=== PATIENT | female | born 1960 | race Two or more races ===

== ENCOUNTER 2023-01-17 16:15 | Emergency (ER) | payer OTHER, SELFPAY ==
[2023-01-17 16:45] VITALS: BP 150/69; PULSE 82; RESP 18; TEMP 36.7; O2SAT 98; BMI 24.7
--- NOTE | 2023-01-17 16:49 | ED.GENADULT ---
HPI - General Adult General Chief complaint: Extremity Problem Stated complaint: sliver under finger nail Time Seen by Provider: 01/17/23 17:03 Source: patient Mode of arrival: ambulatory Limitations: no limitations History of Present Illness HPI narrative: 62 yold female presents to the ED or sliver under first finger nail. patient states sliver came from a sponge while cleaning in a [employer]. She states sliver has been presents for the past 4 days. Patient denies any other complaints. Related Data Allergies Allergy/AdvReac Type Severity Reaction Status Date / Time aspirin [ASA] Allergy Unknown Verified 01/17/23 16:48 Review of Systems Review of Systems: Yes all other systems are reviewed and are negative PMFSH Social History Social History Advance Directives: No Advance Directives Information Provided: No Physical Exam ED Vital Signs: Vital Signs - 24 hr 01/17/23 16:45 Temperature 98.0 F Pulse Rate 82 Respiratory Rate 18 Blood Pressure 150/69 H Pulse Oximetry 98 Oxygen Delivery Method Room Air BMI result Body Mass Index 24.7 Const General: cooperative, healthy appearing, comfortable, no acute distress, well developed, alert, awake and Physically active Orientation/consciousness: oriented to person, oriented to place, oriented to time and patient oriented x3 HENMT Head: Yes normal to inspection, Yes No palpable skull fracture present, Yes normocephalic, Yes atraumatic and No abrasion Eyes General: appearance normal, both eyes and all related structures Neck Neck: Yes normal visual inspection, Yes full ROM, Yes no lymphadenopathy, Yes no meningeal signs, Yes trachea midline, Yes supple, No anterior neck swelling and No tender Chest Chest palpation & inspection: normal inspection of the chest and normal palpation of entire chest wall Resp Effort & Inspection: normal respiratory effort and able to speak in complete sentences Cardio Jugular venous distension: no JVD Heart sounds: S1 normal heart sound present and S2 normal heart sound present GI Inspection: Yes normal to inspection and No abdominal wall ecchymosis Palpation (GI): Soft to palpation, not firm, nontender, no guarding and not rigid General: No CVA tenderness and Yes no CVA tenderness Back/Spine/Pelvis Back: no CVA tenderness, No CVA tenderness and No back tenderness Skin General skin exam: no rashes or lesions noted and elasticity normal Neuro General: oriented to person, oriented to place, oriented to time, patient oriented x3, gait normal, tone normal, moves all extremities, Normal light touch and pain sensation, no meningeal signs, no focal motor deficits and CN's II-XI intact bilaterally Extrem Other: Sliver under right first fingernail that is very small and threadlike. no swelling, pus discharge, redness, gangerened, ecchymosis, or deformity. patient states complete range of motion of finger and rest of extremities. motor, neuro, and vascular exam of extremities is intact. General: Yes normal to inspection and Yes full ROM Psych Appearance: grossly normal, well kempt and not disheveled Course Course Course Narrative: RME; 62 yold female presents to the ED for splinter/silver under first finger nail from working in the kitchen. its basically a bristle ( sliver) from a brush ( sponge). physical exam positive for bristle from a brush ( sponge) under right first finger nail. Sliver is very thin and threadlike and very small. has been presents for the past 4 days. no swelling, redness, tendernss, pus discharge, foul odor, or difficulty movement. No need for tetanus shot. Reevaluation(s) Reevaluation #1: Patient is safe for discharge Medical Decision Making Medical Decision Making MDM Narrative: 62 yold female with sliver under right first finger nail. Finger exam shows just sliver and is normal. No signs of cellulitis, tenosynovitis, fracture, are arterial occlusion, DVT, or osteomyelitis. Negative for signs of paronychia. No further intervention needed. Patient is safe for discharge. Patient educated on signs of infection and told to return to the ED if she has them. No further intervention needed Differential Diagnosis Differential Diagnoses: The differential diagnosis associated with the presentation includes (Cellulitis, tenosynovitis, fracture, or tilt occlusion, DVT, or osteomyelitis, paronychia) Discharge Plan Discharge Clinical Impression: Superficial foreign body (sliver), Subungual sliver of finger Patient Disposition: Home, Self-Care Instructions: Soft Tissue Foreign Body (ED) Additional Instructions: Regrese al servicio de urgencias inmediatamente por enrojecimiento, hinchaz?n del dedo, secreci?n de pus, mal olor, incapacidad para tacking stitch remover el dedo, decoloraci?n de color haven azulado o cualquier otro s?ntoma preocupante. Por favor, kmi un seguimiento con el PCP. Stand Alone Forms: Work/School Release Interventions: ED Discharge Assessment Last Done: 01/17/23 17:07 Discharge Date/Time: 01/17/23 17:08 Print Language: [place]
--- NOTE | 2023-01-17 16:57 | PC.NURSE ---
eval and dc by PIT
== END 2023-01-17 17:08 | disposition home or self-care (01) ==
PROVIDERS: Emergency Provider Emergency Medicine
DX: M79.5 Residual foreign body in soft tissue (principal)
CPT/HCPCS: 20520; 99282; 99283

== ENCOUNTER 2023-04-11 12:55 | Day surgery (SDC) | payer OTHER, SELFPAY ==
[2023-04-11 13:27] VITALS: BMI 23.0
[2023-04-11 13:34] VITALS: BP 145/94; PULSE 109; RESP 18; TEMP 36.1; O2SAT 95
--- NOTE | 2023-04-11 13:38 | HO.ANESPROP2 ---
[facility] Family History Family history of problems with anesthesia: No Surgical History Surgical History (Updated 04/11/23 @ 13:23 by Filomena Berger RN) H/O bilateral breast reduction surgery H/O: hysterectomy Hx laparoscopic cholecystectomy Hx of appendectomy Hx of cholecystectomy History of Problems with Anesthesia: No Social History Social History Patient Tobacco Use Status: Never used Tobacco Use of substances other than those prescribed or required for medical reasons: No Are you DNR?: No Advance Directives: No Advance Directives Information Provided: Yes Meds Allergies Allergy/AdvReac Type Severity Reaction Status Date / Time aspirin [ASA] Allergy Severe Anaphylaxis Verified 04/11/23 13:23 Active Medications: Current Medications Ondansetron HCl (Ondansetron Hcl 4 Mg/2 Ml Vial) 4 mg IVPUSH ONCE PRN PRN Reason: Nausea and Vomiting Sodium Biphosphate/Sodium Phosphate (Sodium Phosphate,Stokes-Dibasic 133 Ml Enema) 133 ml AR ONCE PRN PRN Reason: Poor Colonoscopy Prep Results Exam Exam Date and Time: April 11, 2023 1338 Height,Weight and Vital Signs: Height 5 ft 1 in Weight 55.338 kg Last Vital Signs Temp 97.0 F 04/11/23 13:34 Pulse 109 H 04/11/23 13:34 Resp 18 04/11/23 13:34 BP 145/94 H 04/11/23 13:34 Pulse Ox 95 04/11/23 13:34 O2 Del Method Room Air 04/11/23 13:34 Airway Mallampati Class: III TM Dist: >3cm Loose/Missing/Broken Teeth: No Heart: rrr Lungs: clear Assessment and Plan Assessment Anesthesia Assessment: Anesthesia Plan Discussed Final Anesthetic Review Family History of Problems with Anesthesia: No History of Problems with Anesthesia: No NPO: Yes ASA Class: II Final Preanesthetic Review: No Changes in Pt Med Stat, Meds/Allgs Chart Reviewed, Consent Obtained/Reviewed and Anes Risks/Benef Reviewed Patient Risk: Low Procedure Risk: Low Anesthetic Plan Anesthetic Plan: MAC: Disposition: Standard PACU
[2023-04-11 14:47] VITALS: BP 110/64; PULSE 86; RESP 16; TEMP 36.2; O2SAT 97
--- NOTE | 2023-04-11 14:50 | PM.OP ---
Brief Operative Note Date of Service: 04/11/23 Pre-op diagnosis: GERD, Screening Post-op diagnosis: other (GERD, Hiatal hernia, Gastritis, Diverticulosis) Procedure: EGD with biopsies, Colonoscopy to the cecum and TI Surgeon: Rebel Hawkins Anesthesia: MAC Was an Artificial Flower Maker used for this Procedure?: No Estimated blood loss (mL): 2.0 Pathology: other (A. Gastric antrum B. EG Junction at 33cm) Condition: stable Disposition: PACU
[2023-04-11 15:02] VITALS: BP 131/82; PULSE 67; RESP 18; TEMP 36.9; O2SAT 97
--- NOTE | 2023-04-11 20:35 | OP_ITS ---
DATE OF SERVICE: 04/11/2023 SURGEON: Rebel Hawkins MD INDICATIONS: The patient presents for evaluation of gastroesophageal reflux and reported history of a colon polyp. Full consent has been obtained from her for this, including risks of bleeding and perforation. PREOPERATIVE DIAGNOSIS: POSTOPERATIVE DIAGNOSIS: PROCEDURE PERFORMED: ESTIMATED BLOOD LOSS: COMPLICATIONS: ANESTHESIA: Monitored anesthesia care. ASSISTANTS: SPECIMENS: PREOPERATIVE DIAGNOSES: Gastroesophageal reflux and colorectal cancer screening. POSTOPERATIVE DIAGNOSES: Gastroesophageal reflux and colorectal cancer screening, hiatal hernia, gastritis, gastroesophageal reflux, diverticulosis and internal hemorrhoids. PROCEDURES PERFORMED: Esophagogastroduodenoscopy with biopsies, and colonoscopy to the cecum and terminal ileum. DESCRIPTION OF PROCEDURE: The patient was placed in the left lateral decubitus position. The Olympus video gastroscope was passed in the posterior oropharynx and upper esophagus under direct vision. The scope was passed slowly into the distal esophagus. The gastroesophageal junction appeared at 33 cm. There was some slight irregularity, consistent with reflux and possibly less than 1 cm areas of Wilson mucosa. There was no evidence of any esophagitis nor any lesions. The scope entered the stomach. There was a small to moderate-sized hiatal hernia. The scope was advanced to the pylorus and the duodenum was cannulated to the descending portion. The duodenum including the bulb appeared normal without mass or ulceration. The scope was withdrawn back into the stomach. The gastric antrum had some areas of erythema and edema, but no erosions nor ulceration. There was good peristalsis. Biopsies were obtained from the gastric antrum. The scope was retroflexed visualizing the proximal stomach carefully, which appeared normal, without any sign of mass or ulceration. The scope was straightened and withdrawn back into the esophagus. Biopsies were obtained at the EG junction at 33 cm. Proximal to this, the esophageal mucosa appeared normal. Scope was withdrawn from the patient. She was turned around for the colonoscopy. The digital rectal exam revealed no abnormalities. The Olympus video pediatric colonoscope was entered into the rectum and advanced easily to the cecum. Once in the cecum, I did identify normal-appearing cecal pouch with appendiceal orifice and a normal-appearing ileocecal valve. The terminal ileum was cannulated and appeared normal. The scope was withdrawn back in the colon. The entire cecum and ileocecal valve appeared normal. The appendiceal orifice appeared normal. The scope was slowly withdrawn assessing all mucosal surfaces carefully. Preparation was excellent. I did not visualize any sign of polyps, colitis, nor angiodysplasia. There was a mild amount of sigmoid diverticulosis. In the rectum, scope was retroflexed, visualizing internal hemorrhoids, but no other pathology. The rectal mucosa appeared normal. The scope was straightened and withdrawn from the patient. She tolerated both procedures well and was returned to recovery area in stable condition. IMPRESSION: 1. Hiatal hernia, gastroesophageal reflux, rule out Wilson's esophagus. 2. Mild gastritis. 3. Diverticulosis. 4. Internal hemorrhoids. PLAN: The results of biopsy will be checked. If the upper endoscopy biopsies do show Wilson's esophagus without dysplasia, I would recommend a repeat upper endoscopy in 3 years. If there is no evidence of any Wilson's esophagus, I do not think she would need any further upper endoscopies at this time. She is currently asymptomatic in regard to any upper GI symptoms. Even if Helicobacter pylori is found in the gastric biopsies, I do not think that would need to be treated at this time since she is otherwise asymptomatic. She was advised not to use any aspirin and NSAIDs for 1 week. Given today's negative colonoscopy, but a possible history of some polyps removed while in [facility], several years ago, I would recommend a repeat colonoscopy in 5 years for further surveillance. In general, she will otherwise see me on a p.r.n. basis. This has been discussed with her daughter. MD HUMBERTO Sal/MANE / [id number]
== END 2023-04-11 15:42 | disposition home or self-care (01) ==
PROVIDERS: PCP Internal Medicine; Visit Provider Internal Medicine
PROC: (CPT 45378; principal; 2023-04-11 13:50)
DX: Z12.11 Encounter for screening for malignant neoplasm of colon (principal); K57.30 Diverticulosis of large intestine without perforation or abscess without bleeding; K64.8 Other hemorrhoids; K21.9 Gastro-esophageal reflux disease without esophagitis; K29.70 Gastritis, unspecified, without bleeding; K44.9 Diaphragmatic hernia without obstruction or gangrene
CPT/HCPCS: 45378; 43239; 88305; 88342